=== PATIENT | female | born 1945 | race African-American/Black ===

== ENCOUNTER 2017-11-10 17:37 | Emergency (ER) | payer MEDICARE ==
[~2017-11-10] VITALS: Ht 172.7 cm; Wt 78.5 kg
[~2017-11-10 17:37] MED LIST: CYCL10TA2 PO; FLUT1DIS3 IH; GABA-585 PO; HYDR-2762 PO; IPRA4AER IH; SERT25TA4 PO
--- NOTE | 2017-11-10 20:27 | PHYS DOC ---
Past Medical History Past Medical History: Asthma Additional Past Medical Histor: back pain Past Surgical History: Hysterectomy, Other Additional Past Surgical Histo: BACK, GASTRIC SLEEVE Smoking: Cigarettes (The patient is a nonsmoker.) Alcohol Use: None Drug Use: None Adult General Chief Complaint Chief Complaint: ASTHMA HPI HPI Patient is a 72-year-old female presents to the emergency department for evaluation. She states she woke this afternoon from a nap, and began having some difficulty breathing. She states she has been having paroxysms of coughing , which is mostly nonproductive. She reports some tightness of her breathing similar to prior asthmatic episodes. She has not had any pleuritic chest pain, denies any dizziness or lightheadedness. She has not had any nausea, vomiting, or exertional pain. There are no alleviating, or exacerbating factors to her symptoms otherwise. She did take some puffs of her albuterol inhaler without improvement in her symptoms. The patient did have a lumbar stimulator placed surgically, about a month ago, but has had no other immobilizations, and denies any calf pain or swelling, or leg pain. Review of Systems Review of Systems Constitutional: Denies fever or chills [] Eyes: Denies change in visual acuity, redness, or eye pain [] HENT: Denies nasal congestion or sore throat [] Respiratory: Reports cough & shortness of breath [] Cardiovascular: The patient denies any chest pain per se, denies pleuritic pain , palpitations, or orthopnea [] GI: Denies abdominal pain, nausea, vomiting, bloody stools or diarrhea [] : Denies dysuria or hematuria [] Musculoskeletal: Denies back pain or joint pain [] Integument: Denies rash or skin lesions [] Neurologic: Denies headache, focal weakness or sensory changes [] Endocrine: Denies polyuria or polydipsia [] All other systems were reviewed and found to be within normal limits, except as documented in this note. Current Medications Current Medications Current Medications Medications (Trade) Dose Ordered Sig/Sasha Start Time Stop Time Status Last Admin Dose Admin Albuterol/ Ipratropium (Duoneb) 3 ml 1X ONCE 11/10/17 20:30 11/10/17 20:31 DC 11/10/17 20:41 3 ML Benzonatate (Tessalon Perle) 100 mg 1X ONCE 11/10/17 20:30 8/16/18 20:31 DC 11/10/17 20:30 100 MG Info (CONTRAST GIVEN -- Rx MONITORING) 1 each PRN DAILY PRN 11/10/17 22:00 11/12/17 21:59 Iohexol (Omnipaque 300 Mg/ml) 75 ml 1X ONCE 11/10/17 22:00 11/10/17 22:01 DC 11/10/17 22:12 75 ML Allergies Allergies Allergies Coded Allergies Type Severity Reaction Last Updated Verified No Known Drug Allergies 10/11/15 No Physical Exam Physical Exam PHYSICAL EXAM: CONSTITUTIONAL: Well developed, well nourished HEAD: normocephalic, atraumatic EENT: PERRL, EOMI. Conjunctivae normal color, sclerae non-icteric; moist mucous membranes. NECK: Supple, non-tender; no meningismus. LUNGS: The patient does have some coughing paroxysms, otherwise there are very mild expiratory wheezes scattered, breathing even and unlabored. Normal air movement. HEART: Regular rate and rhythm, no murmur CHEST: No deformity; non-tender ABDOMEN: The abdomen is soft, and non-tender, no masses or bruits. EXTREM: Normal ROM; no deformity, no calf tenderness. Normal pulses palpable in all extremities. There is no pedal edema. SKIN: No rash; no diaphoresis NEURO: Alert; normal speech and cognition; CN's grossly intact; strength grossly intact without focal deficit. BACK: No CVA TTP. Current Patient Data Vital Signs Vital Signs Date Time Temp Pulse Resp B/P (MAP) Pulse Ox O2 Delivery O2 Flow Rate FiO2 11/10/17 22:56 72 18 139/63 (88) 99 11/10/17 20:43 Room Air 11/10/17 20:08 98.1 98.1 Lab Values Laboratory Tests Test 11/10/17 20:40 White Blood Count 6.0 x10^3/uL (4.0-11.0) Red Blood Count 3.70 x10^6/uL (3.50-5.40) Hemoglobin 11.9 g/dL (12.0-15.5) L Hematocrit 35.7 % (36.0-47.0) L Mean Corpuscular Volume 97 fL (79-100) Mean Corpuscular Hemoglobin 32 pg (25-35) Mean Corpuscular Hemoglobin Concent 33 g/dL (31-37) Red Cell Distribution Width 15.3 % (11.5-14.5) H Platelet Count 167 x10^3/uL (140-400) Neutrophils (%) (Auto) 47 % (31-73) Lymphocytes (%) (Auto) 45 % (24-48) Monocytes (%) (Auto) 6 % (0-9) Eosinophils (%) (Auto) 1 % (0-3) Basophils (%) (Auto) 1 % (0-3) Neutrophils # (Auto) 2.8 x10^3uL (1.8-7.7) Lymphocytes # (Auto) 2.7 x10^3/uL (1.0-4.8) Monocytes # (Auto) 0.4 x10^3/uL (0.0-1.1) Eosinophils # (Auto) 0.1 x10^3/uL (0.0-0.7) Basophils # (Auto) 0.0 x10^3/uL (0.0-0.2) Prothrombin Time 13.8 SEC (11.7-14.0) Prothrombin Time INR 1.1 (0.8-1.1) D-Dimer (Keesha) 1.12 ug/mlFEU (0.00-0.50) H Sodium Level 139 mmol/L (136-145) Potassium Level 3.6 mmol/L (3.5-5.1) Chloride Level 105 mmol/L (98-107) Carbon Dioxide Level 30 mmol/L (21-32) Anion Gap 4 (6-14) L Blood Urea Nitrogen 20 mg/dL (7-20) Creatinine 1.1 mg/dL (0.6-1.0) H Estimated GFR (Cockcroft-Gault) 59.2 BUN/Creatinine Ratio 18 (6-20) Glucose Level 162 mg/dL (70-99) H Calcium Level 8.8 mg/dL (8.5-10.1) Magnesium Level 2.4 mg/dL (1.8-2.4) Total Bilirubin 0.4 mg/dL (0.2-1.0) Aspartate Amino Transferase (AST) 18 U/L (15-37) Alanine Aminotransferase (ALT) 23 U/L (14-59) Alkaline Phosphatase 89 U/L (46-116) Creatine Kinase 29 U/L (26-192) Creatine Kinase MB (Mass) < 0.5 ng/mL (0.0-3.6) Creatine Kinase MB Relative Index % (0-4) Troponin I Quantitative < 0.017 ng/mL (0.000-0.055) LL-Lte-F-Type Natriuretic Peptide 303 pg/mL (0-124) H Total Protein 7.7 g/dL (6.4-8.2) Albumin 3.9 g/dL (3.4-5.0) Albumin/Globulin Ratio 1.0 (1.0-1.7) Laboratory Tests 11/10/17 20:40 Laboratory Tests 11/10/17 20:40 EKG EKG [Normal sinus rhythm at a rate of 74 bpm, left axis deviation, normal intervals , there are no acute ischemic ST/T changes.] Radiology/Procedures Radiology/Procedures [ER physician preliminary chest x-ray interpretation: Borderline cardiomegaly without acute disease.] PROCEDURE: CT ANGIOGRAPHY CHEST Chest CTA History: Cough, shortness of air and chest pain today Technique: After bolus of intravenous contrast, CT imaging was performed of the chest. Multiplanar reconstruction images to include MIP reconstruction images are submitted. Exposure: One or more of the following individualized dose reduction techniques were utilized for this examination: 1. Automated exposure control 2. Adjustment of the mA and/or kV according to patient size 3. Use of iterative reconstruction technique. Contrast: 75 cc Omnipaque 300 Comparison: None Findings: [ ] There is suboptimal contrast opacification of the pulmonary arteries. No embolism is identified in the main pulmonary arteries although otherwise cannot accurately evaluate for pulmonary embolic disease on this exam. There are some calcified right hilar and mediastinal nodes compatible with old granulomatous disease. Thoracic aortic caliber is within normal limits without intraluminal flap. There is no pericardial or pleural effusion or pneumothorax. There are thoracic spinal stimulator leads present. There is nonspecific relative wall thickening distal esophagus. Impression: 1. There is suboptimal contrast opacification of pulmonary arteries, no embolism identified in the main pulmonary arteries although otherwise cannot accurately evaluate for pulmonary embolic disease. 2. There is nonspecific relative wall thickening distal esophagus, can be seen with esophagitis although nonspecific. Course & Med Decision Making Course & Med Decision Making Pertinent Labs and Imaging studies reviewed. (See chart for details) [11:15 PM: The patient is feeling significantly better. She still has some faint expiratory wheezing. Clinical suspicion for pulmonary embolism is not very high at this time. I did discuss importance of close PCP follow-up and return precautions in detail.] The patient has an adequate supply of her inhalers at home, and she will be given a prescription for a steroid course. Dragon Disclaimer Dragon Disclaimer This electronic medical record was generated, in whole or in part, using a voice recognition dictation system. Departure Departure Impression: Primary Impression: Acute asthma exacerbation Disposition: HOME, SELF-CARE Condition: STABLE Referrals: ALFONSO MELCHOR MD (PCP) Patient Instructions: Asthma, Acute Bronchospasm, Asthma, Adult Scripts Prednisone (PREDNISONE) 20 Mg Tablet 40 MG PO DAILY for 5 Days, #10 TAB Prov: SABRINA JARVIS MD 11/10/17 SABRINA JARVIS MD Nov 10, 2017 20:27
[2017-11-10] MEDS ORDERED: BENZONATATE 100 MG CAPSULE. PO ONE (20:30)
[2017-11-10] MEDS ORDERED: IPRATRPIUM/ALBUTEROL 0.5/2.5MG 3 ML NEBU. NEB ONE (20:30)
--- NOTE | 2017-11-10 20:39 | EKG ---
[facility] [address] [place] [address] Test Date: 2017-11-10 Test Time: 20:10:48 Pat Name: REAGAN PERDOMO Department: Room: Gender: F Sr. Consultant: : [id number] Requested By: SABRINA JARVIS Order Number: [id number] Reading MD: Carlos Kemp MD Measurements Intervals [place] Rate: 74 P: -16 [place]: 136 QRS: -7 QRSD: 78 T: 66 QT: 382 QTc: 424 Interpretive Statements SINUS RHYTHM Electronically Signed On 11-14-2017 10:33:55 CDT by Carlos Kemp MD
[2017-11-10 21:20] LABS: BASO % 1 % (0-3); EOS # 0.1 x10^3/uL (0.0-0.7); EOS % 1 % (0-3); HEMATOCRIT 35.7 % (36.0-47.0); HEMOGLOBIN 11.9 g/dL (12.0-15.5); LYMPH # 2.7 x10^3/uL (1.0-4.8); LYMPH % 45 % (24-48); MEAN CORPUSCULAR HEMOGLOBIN 32 pg (25-35); MEAN CORPUSCULAR HGB CONC 33 g/dL (31-37); MEAN CORPUSCULAR VOLUME 97 fL (79-100); MONO # 0.4 x10^3/uL (0.0-1.1); MONO % 6 % (0-9); NEUT # 2.8 x10^3uL (1.8-7.7); NEUT % 47 % (31-73); PLATELET COUNT 167 x10^3/uL (140-400); RED CELL DISTRIBUTION WIDTH 15.3 % (11.5-14.5)
[2017-11-10 21:29] LABS: PROTHROMBIN TIME PATIENT 13.8 SEC (11.7-14.0)
[2017-11-10 21:32] LABS: D-DIMER 1.12 ug/mlFEU (0.00-0.50)
[2017-11-10 21:34] LABS: ALBUMIN 3.9 g/dL (3.4-5.0); CALCIUM 8.8 mg/dL (8.5-10.1); CREATININE 1.1 mg/dL (0.6-1.0); GFR 59.2; MAGNESIUM 2.4 mg/dL (1.8-2.4); POTASSIUM 3.6 mmol/L (3.5-5.1); TOTAL BILIRUBIN 0.4 mg/dL (0.2-1.0); TOTAL PROTEIN 7.7 g/dL (6.4-8.2)
[2017-11-10 21:45] LABS: CREATINE KINASE 29 U/L (26-192)
[2017-11-10] MEDS ORDERED: CONTRAST GIVEN. MC PRN (22:00)
[2017-11-10] MEDS ORDERED: IOHEXOL 300 MG/ML 100ML VIAL. IV ONE (22:00)
--- NOTE | 2017-11-10 22:35 | RAD ---
Chest CTA History: Cough, shortness of air and chest pain today Technique: After bolus of intravenous contrast, CT imaging was performed of the chest. Multiplanar reconstruction images to include MIP reconstruction images are submitted. Exposure: One or more of the following individualized dose reduction techniques were utilized for this examination: 1. Automated exposure control 2. Adjustment of the mA and/or kV according to patient size 3. Use of iterative reconstruction technique. Contrast: 75 cc Omnipaque 300 Comparison: None Findings: [ ] There is suboptimal contrast opacification of the pulmonary arteries. No embolism is identified in the main pulmonary arteries although otherwise cannot accurately evaluate for pulmonary embolic disease on this exam. There are some calcified right hilar and mediastinal nodes compatible with old granulomatous disease. Thoracic aortic caliber is within normal limits without intraluminal flap. There is no pericardial or pleural effusion or pneumothorax. There are thoracic spinal stimulator leads present. There is nonspecific relative wall thickening distal esophagus. Impression: 1. There is suboptimal contrast opacification of pulmonary arteries, no embolism identified in the main pulmonary arteries although otherwise cannot accurately evaluate for pulmonary embolic disease. 2. There is nonspecific relative wall thickening distal esophagus, can be seen with esophagitis although nonspecific. Electronically signed by: Chuck Tavarez MD (11/10/2017 10:31 PM) [id number]
[2017-11-10] MEDS ORDERED: PRED20TA PO (23:17)
[2017-11-10] MEDS ORDERED: BENZ100C PO (23:19)
[2017-11-10 23:23] VITALS: BP 132/62
--- NOTE | 2017-11-11 08:32 | RAD ---
EXAM: Portable AP view of the chest DATE: 11/10/2017 8:27 PM INDICATION: COUGH, SOA. HX OF ASTHMA COMPARISON: No Prior FINDINGS: Spinal stimulator leads are partially profiled. The heart is not enlarged. Mediastinal and hilar contours are normal. No focal parenchymal airspace opacity. No pleural effusion or pneumothorax. IMPRESSION: 1. No radiographic evidence for acute cardiopulmonary process. Electronically signed by: Miguel Arevalo MD (11/11/2017 8:28 AM) [facility]
== END 2017-11-10 23:24 | disposition home or self-care (01) ==
LOC: ER 17:37
DX: J45.901 Unspecified asthma with (acute) exacerbation (principal); Z90.710 Acquired absence of both cervix and uterus
CPT/HCPCS: 36415; 71045; 71275; 80053; 82553; 83735; 83880; 84484; 85025; 85379; 85610; 93005; 94640; 99285; J7620; Q9967

== ENCOUNTER → 2019-05-22 | Outpatient (CLI) | payer OTHER, MEDICARE ==
[~2019-05-22] MED LIST changes: +BENZ100C PO; +GADOTERATE 7.5 MMOL/15ML VIAL. IVP ONE; -HYDR-2762 PO; +HYDR-2765 PO; +PRED20TA PO
[2019-05-22 13:29] LABS: GFR 65.8
--- NOTE | 2019-05-22 16:03 | RAD ---
MRI Brain without contrast History: Dizziness, intermittent speech disturbance Technique: Multiplanar, multisequential noncontrast MR imaging was performed of the brain. No contrast was given as reportedly unable to obtain adequate intravenous access. Comparison: None Findings: There is no evidence of recent infarct or cytotoxic edema. Ventricular size is within normal limits. There is mild generalized supratentorial involutional change.There is no significant midline shift, intraaxial mass effect, or focal abnormal extra-axial fluid collection. There is scattered overall mild T2 and FLAIR hyperintense signal abnormality of the supratentorial parenchyma bilaterally with somewhat more confluent and larger foci of the bilateral periatrial white matter. There is also small focus of the more central anterior kiara. There are also some foci of T2 and FLAIR hyperintense signal of the bilateral temporal lobes, left greater than right, not associated with significant mass effect. There is no significant hemosiderin deposition of the brain parenchyma. There is preservation of the major intracranial flow-voids at the skull base. There is mild thickening of the mastoid air cells bilaterally.The cerebellar tonsils are normal in location. There is no significant abnormality of the pineal gland. Pituitary gland is small, may be incidental. There is patchy minimal ethmoid air cell and right sphenoid sinus mucosal thickening. There is right maxillary sinus mucous retention cyst about 1 cm. There is preserved marrow signal of the clivus. Impression: 1. There is no evidence of recent infarct. There is scattered nonspecific T2 and FLAIR hyperintense signal abnormality of the supratentorial parenchyma bilaterally, nonspecific findings which could be due to chronic microvascular ischemic disease. There is also patchy, nonspecific T2 and FLAIR hyperintense signal of the bilateral temporal lobes left greater than right, also which could be related to chronic microvascular ischemic disease or sequela of demyelination, sequela of encephalitis considered less likely given lack of significant mass effect or hemorrhage. However if there are clinical findings suggestive of more acute changes or suspicion for early infection, short-term follow-up to assess for change to include postcontrast imaging could be beneficial. Electronically signed by: Chuck Tavarez MD (05/22/2019 4:00 PM) [id number]
== END | disposition home or self-care (01) ==
LOC: MRI 12:21
PROVIDERS: ATTEND Family Medicine
DX: R47.89 Other speech disturbances (principal); R42 Dizziness and giddiness; J34.89 Other specified disorders of nose and nasal sinuses; J34.1 Cyst and mucocele of nose and nasal sinus; H74.8X3 Other specified disorders of middle ear and mastoid, bilateral
CPT/HCPCS: 36415; 70551; 82565; 84520